=== PATIENT | female | born 1975 | race Caucasian/White ===

== ENCOUNTER 2020-10-22 14:20 | Emergency (ER) | payer BC ==
--- NOTE | 2020-10-22 15:08 | EDM.PDOC ---
ED HPI GENERAL MEDICAL PROBLEM - General Chief Complaint: Respiratory Problem Stated Complaint: SHORTNESS OF BREATH Time Seen by Provider: 10/22/20 15:06 Source of Information: Reports: Patient History Limitations: Reports: No Limitations - History of Present Illness INITIAL COMMENTS - FREE TEXT/NARRATIVE: Patient is a unfortunate 45-year-old obese female presents emerged department today with complaint of shortness of breath. Patient reports that she was in her normal state of health approximately 2 months ago when she started having shortness of breath. She reports that she was seen by her PCP last week and was started on a "water pill". The patient reports that since that time she is continued to have shortness of breath. She is able to make it from the bed to the bathroom without any difficulty however she cannot make it from the door to the mailbox without becoming shortness of breath. She is able to lay down flat and sleep at night. Patient denies any cough no congestion no chest pain no nausea no vomiting no fevers no chills no known coronavirus exposure - Related Data Allergies Allergy/AdvReac Type Severity Reaction Status Date / Time amoxicillin Allergy Rash Verified 10/22/20 14:53 Sulfa (Sulfonamide Allergy Rash Verified 10/22/20 14:53 Antibiotics) MSG Allergy Rash Uncoded 10/22/20 14:53 steroids in cold medications Allergy Delusions Uncoded 10/22/20 14:53 Home Meds: Home Meds . [Unable to Verify Home Med List] 10/22/20 [History] Past Medical History HEENT History: Reports: None Cardiovascular History: Reports: None Respiratory History: Reports: None Gastrointestinal History: Reports: None Genitourinary History: Reports: None SALES COUNSELOR History: Reports: None Musculoskeletal History: Reports: None Neurological History: Reports: None Psychiatric History: Reports: Anxiety, Bipolar, Depression Other Psychiatric History: pt states that she has numerous mental health issues and cannot remember them all Endocrine/Metabolic History: Reports: None Hematologic History: Reports: None Immunologic History: Reports: None Oncologic (Cancer) History: Reports: None Dermatologic History: Reports: None - Infectious Disease History Infectious Disease History: Reports: None - Past Surgical History Head Surgeries/Procedures: Reports: None Social & Family History - Family History Family Medical History: Unobtainable - Tobacco Use Tobacco Use Status *Q: Current Every Day Tobacco User Years of Tobacco use: 5 Packs/Tins Daily: 1 - Caffeine Use Caffeine Use: Reports: Coffee - Alcohol Use Days Per Week of Alcohol Use: 7 Number of Drinks Per Day: 2 Total Drinks Per Week: 14 - Recreational Drug Use Recreational Drug Use: No ED ROS GENERAL - Review of Systems Review Of Systems: See Below Constitutional: Denies: Fever, Chills Respiratory: Reports: Shortness of Breath. Denies: Wheezing, Cough Cardiovascular: Denies: Chest Pain ED EXAM, GENERAL - Physical Exam Exam: See Below Exam Limited By: No Limitations General Appearance: Alert, WD/WN, Mild Distress Nose: Normal Inspection, Normal Mucosa, No Blood Throat/Mouth: Normal Inspection, Normal Lips, Normal Teeth, Normal Gums, Normal Oropharynx, Normal Voice, No Airway Compromise Head: Atraumatic, Normocephalic Neck: Normal Inspection, Supple, Non-Tender, Full Range of Motion Respiratory/Chest: No Respiratory Distress, Lungs Clear, Normal Breath Sounds, No Accessory Muscle Use, Chest Non-Tender Cardiovascular: Normal Peripheral Pulses, Regular Rate, Rhythm, No Edema, No Gallop, No JVD, No Murmur, No Rub GI/Abdominal: Normal Bowel Sounds, Soft, Non-Tender, No Organomegaly, No Distention, No Abnormal Bruit, No Mass Extremities: Normal Inspection, Normal Range of Motion, Non-Tender, Normal Capillary Refill, Other (1 Plus pedal edema bilaterally) Neurological: Alert Psychiatric: Normal Affect, Normal Mood Skin Exam: Warm, Dry, Intact, Normal Color, No Rash #1 Interpretation EKG Date: 10/22/20 Time: 15:31 Rhythm: NSR [place]: Normal P-Wave: Present QRS: Normal ST-T: Normal QT: Normal EKG Interpretation Comments: Normal EKG, mild wandering baseline acute ischemic changes Course - Vital Signs Text/Narrative:: Chest x-ray, interpreted by me, NAD Today is reassuring, no evidence of acute cardiac or pulmonary process, will discharge patient home have patient follow-up outpatient with PCP or return for any worsening condition Last Recorded V/S: Last Vital Signs Temp 98.4 F 10/22/20 14:54 Pulse 86 10/22/20 14:54 Resp 18 10/22/20 14:54 BP 141/64 H 10/22/20 14:54 Pulse Ox 95 10/22/20 14:54 - Orders/Labs/Meds Orders: Active Orders 24 hr Category Date Time Status EKG Documentation Completion [RC] STAT Care 10/22/20 15:05 Active COVID-19/FLU A+B [[facility]] Stat Lab 10/22/20 16:18 Received Labs: Laboratory Tests 10/22/20 10/22/20 10/22/20 Range/Units 15:22 15:22 15:46 WBC 10.5 H (5.0-10.0) 10^3/uL RBC 4.27 (4.2-5.4) 10^6/uL Hgb 13.9 (12.0-16.0) g/dL Hct 41.6 (37.0-47.0) % MCV 97.4 (80-100) fL MCH 32.6 (27.0-34.0) pg MCHC 33.4 (33.0-35.0) g/dL Plt Count 288 (150-450) 10^3/uL Neut % (Auto) 63.8 (42.2-75.2) % Lymph % (Auto) 22.6 (20.5-50.1) % [place] % (Auto) 8.7 H (2-8) % Eos % (Auto) 4.3 H (1.0-3.0) % Baso % (Auto) 0.6 (0.0-1.0) % Sodium 140 (136-145) mmol/L Potassium 4.3 (3.5-5.1) mmol/L Chloride 101 (98-107) mmol/L Carbon Dioxide 28 (21-32) mmol/L Anion Gap 15.3 H (7-13) mEq/L BUN 9 (7-18) mg/dL Creatinine 0.71 (0.55-1.02) mg/dL Est Cr Clr Drug Dosing 95.26 mL/min Estimated GFR (MDRD) > 60 BUN/Creatinine Ratio 12.7 (No establ ref range) Glucose 117 H (70-99) mg/dL Calcium 8.7 (8.5-10.1) mg/dL Total Bilirubin 0.3 (0.2-1.0) mg/dL AST 14 L (15-37) U/L ALT 25 (14-59) U/L Alkaline Phosphatase 77 (46-116) U/L Troponin I High Sens 6 (<=51) pg/mL B-Natriuretic Peptide 5 (0-100) pg/ml Total Protein 6.9 (6.4-8.2) g/dL Albumin 3.6 (3.4-5.0) g/dL Globulin 3.3 Albumin/Globulin Ratio 1.1 HCG, Qual Negative Urine Color Yellow (YELLOW) Urine Appearance Slightly cloudy (CLEAR) Urine pH 6.5 (5.0-9.0) Ur Specific Dix >= 1.030 (1.005-1.030) Urine Protein Negative (NEGATIVE) Urine Glucose (UA) Negative (NEGATIVE) Urine Ketones Negative (NEGATIVE) Urine Occult Blood Trace-intact H (NEGATIVE) Urine Nitrite Negative (NEGATIVE) Urine Bilirubin Negative (NEGATIVE) Urine Urobilinogen 0.2 (0.2-1.0) mg/dL Ur Leukocyte Esterase Negative (NEGATIVE) Urine RBC 10-20 H /HPF Urine WBC 0-5 (0-5/HPF) /HPF Ur Epithelial Cells Few (NOT SEEN) /HPF Amorphous Sediment Few (NOT SEEN) /HPF Urine Bacteria Few (0-FEW/HPF) /HPF Urine Mucus Few H (NOT SEEN) /LPF Departure - Departure Time of Disposition: 16:33 Disposition: Home, Self-Care 01 Clinical Impression: Dyspnea Qualifiers: Dyspnea type: dyspnea on exertion Qualified Code(s): R06.00 - Dyspnea, unspecified - Discharge Information *PRESCRIPTION DRUG MONITORING PROGRAM REVIEWED*: No *COPY OF PRESCRIPTION DRUG MONITORING REPORT IN PATIENT ALONSO: No Instructions: Shortness of Breath, Adult, [id number] Forms: ED Department Discharge Additional Instructions: Home, rest, follow-up with your PCP next week, return to the emergency department for any worsening condition Sepsis Event Note (ED) - Evaluation Sepsis Screening Result: No Definite Risk - Focused Exam Vital Signs: Vital Signs Temp Pulse Resp BP Pulse Ox 10/22/20 14:54 98.4 F 86 18 141/64 H 95 - My Orders Last 24 Hours: My Active Orders 10/22/20 15:05 EKG Documentation Completion [RC] STAT 10/22/20 16:18 COVID-19/FLU A+B [[facility]] Stat - Assessment/Plan Last 24 Hours: My Active Orders 10/22/20 15:05 EKG Documentation Completion [RC] STAT 10/22/20 16:18 COVID-19/FLU A+B [[facility]] Stat
[2020-10-22 15:49] LABS: ANION GAP 15.3 mEq/L (7-13); CHLORIDE,CL 101 mmol/L (98-107); SODIUM,NA 140 mmol/L (136-145)
--- NOTE | 2020-10-22 16:32 | CR ---
PROCEDURE INFORMATION: Exam: XR Chest Exam date and time: 10/22/2020 4:07 PM Age: 45 years old Clinical indication: Dyspnea TECHNIQUE: Imaging protocol: XR of the chest. Views: 2 views. COMPARISON: No relevant prior studies available. 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 There are no suspicious pulmonary nodules or areas of lung consolidation. Pleural spaces: Unremarkable. No pleural effusion. No pneumothorax. Heart/Mediastinum: Unremarkable. No cardiomegaly. Bones/joints: Mild spinal curvature. Straightening of the normal thoracic curvature with minimal lordosis. Mild spondylosis. IMPRESSION: 1. No acute pulmonary findings. 2. There is mild fibrobullous lung disease.
[2020-10-22 17:07] LABS: CORONAVIRUS COVID-19 NAA NEGATIVE (NEGATIVE)
== END 2020-10-22 17:03 | disposition home or self-care (01) ==
LOC: DL.ED 14:20
DX: R06.02 Shortness of breath (principal); Z72.0 Tobacco use; Z20.822 Contact with and (suspected) exposure to COVID-19
CPT/HCPCS: 0240U; 36415; 71046; 80053; 81001; 83880; 84484; 84703; 85025; 93005; 99285